=== PATIENT | male | born 2000 ===

== ENCOUNTER 2022-11-29 21:47 | Emergency (ER) | payer BC, SELFPAY ==
--- NOTE | 2022-11-29 | ECG_ITS ---
Test Reason : syncopee Blood Pressure : / mmHG Vent. Rate : 049 BPM Atrial Rate : 049 BPM P-R Int : 128 ms QRS Dur : 100 ms QT Int : 422 ms P-R-T Axes : -17 134 151 degrees QTc Int : 381 ms Suspect limb lead reversal, interpretation assumes no reversal Sinus bradycardia with sinus arrhythmia Lateral infarct , age undetermined Abnormal ECG No previous ECGs available Referred By: Generic ED Physician Electronically Signed By:RAMESH HUGHES
[2022-11-29 21:51] VITALS: BP 100/62; PULSE 70; O2SAT 98
[2022-11-29 22:03] VITALS: BP 108/61; PULSE 66; RESP 18; TEMP 36.8; O2SAT 97; BMI 18.6
[2022-11-29 22:19] LABS: MANUAL DIFF FLAG NO
[2022-11-29 22:35] LABS: Alanine Aminotransferase 10 U/L (0-40); Albumin Level 4.3 g/dL (3.5-5.0); Alkaline Phosphatase 69 U/L (39-117); Anion Gap 12 (12-20); Aspartate Amino Transferase 16 U/L (5-37); Bilirubin Total 0.4 mg/dL (0.0-1.0); Blood Urea Nitrogen 10 mg/dL (9-16); Calcium 9.1 mg/dL (8.4-10.2); Carbon Dioxide 28 mmol/L (22-29); Chloride 107 mmol/L (96-108); Creatinine Clr Calc Pharmacy 115.7; Estimated Glomerular Filt Rate > 60; Glucose Random 132 mg/dL (60-115); Potassium 3.9 mmol/L (3.3-5.1); Sodium 143 mmol/L (135-145); Total Protein 6.4 g/dL (6.5-8.0)
[2022-11-29 22:40] LABS: Basophils Absolute Auto 0.1 X10*3/uL (0.0-0.2); Basophils Percent Auto 1.3 % (0-2); Eosinophils Absolute Auto 0.5 X10*3/uL (0.0-0.4); Eosinophils Percent Auto 7.5 % (0-4); Hemoglobin 14.8 g/dl (14.0-18.0); Imm Gran Abs Auto 0.03 X10*3/uL (0.00-0.03); Imm Gran Pct Auto 0.4 % (0.0-0.4); Lymphocytes Absolute Auto 2.9 X10*3/uL (1.2-4.9); Lymphocytes Percent Auto 40.3 % (20-40); Mean Corpuscular HGB Conc 34.4 g/dl (31.0-36.0); Mean Corpuscular Hemoglobin 31.2 pg (27.0-33.0); Mean Corpuscular Volume 90.5 fL (80.0-98.0); Mean Platelet Volume 10.6 fL (9.4-12.4); Monocytes Absolute Auto 0.4 X10*3/uL (0.1-1.2); Monocytes Percent Auto 6.2 % (2-11); Neutrophils Absolute Auto 3.1 x10*3/uL (2.0-8.3); Neutrophils Percent Auto 44.3 % (45-73); Platelet Count 228 X10*3/uL (160-400); Red Blood Count 4.75 X10*6/uL (4.60-5.80); White Blood Count 7.1 X10*3/uL (4.8-10.8)
--- NOTE | 2022-11-29 23:08 | ED_ITS ---
HPI - Syncope General Chief Complaint: Syncope Stated Complaint: collapse? Time Seen by Provider: 11/29/22 23:02 Source: patient Mode of arrival: EMS Limitations: no limitations History of Present Illness HPI narrative: 22 yo male no PMH was smoking THC didn't eat much today other than a bagel and some water since lunch was standing in line at dispensary felt hot and dizzy knew he was going to pass out. laid himself down and had brief LOC 5 seconds. no preceding CP/SOB feels fine now and wants to go home. no travel or procedures no fam hx of sudden cardiac MD complaint: felt faint and collapsed Onset (ago): minute(s) (prior to arrival ) Duration of episode: 5 -: second(s) Prodromal symptoms: lightheaded Witnessed: Yes - by Bystander Context: standing up Injuries sustained associated with event: none Current symptoms: none and back to baseline Treatments prior to arrival: none Related Data Allergies Allergy/AdvReac Type Severity Reaction Status Date / Time tree nut Allergy Anaphylaxis Verified 11/29/22 22:07 Review of Systems Review of Systems: Constitutional : No Fever, No Chills, No Fatigue ENT/Mouth : No sore throat, No Rhinorrhea Eyes: No Eye Pain, No Swelling, No Redness Cardiovascular : No Chest Pain, No SOB, No Dyspnea on Exertion Respiratory : No Cough, No Sputum Gastrointestinal : No Nausea, No Vomiting, No Diarrhea, No abdominal Pain Genitourinary : No Dysuria, No Urinary Frequency, No Hematuria, Musculoskeletal : No joint pain, No Myalgias, No Joint Swelling Skin : No Skin Lesions, No rash Neuro : No Weakness, No Numbness, No Dizziness, no Headache Psych : No Anxiety/Panic, No Depression All other systems reviewed and are negative [facility] Past Medical History Attestation statement: The following information was validated with the patient. Medical History No pertinent past medical history Social History Social History Alcohol intake: current Alcohol intake frequency: holidays/special occasions only Substance Use Type: Marijuana Physical Exam Vital Signs: Vital Signs: Last Vital Signs Temp 98.2 F 11/29/22 22:03 Pulse 66 11/29/22 22:03 Resp 18 11/29/22 22:03 BP 108/61 08/30/23 22:03 Pulse Ox 99 11/29/22 23:28 O2 Del Method Room Air 11/29/22 23:28 BMI result Body Mass Index 18.6 Appearance: Alert. Oriented X3. No acute distress. Eyes: Pupils equal, round and reactive to light. ENT: Pharynx normal. Neck: Normal inspection. Neck supple. CVS: Normal heart rate and rhythm. Pulses normal. Respiratory: No respiratory distress. Breath sounds normal. Abdomen: Soft and nontender. Skin: Skin warm and dry. Normal skin color. Normal skin turgor. Extremities: No lower extremity edema. No calf ttp Neuro: Oriented X 3. No motor deficit. No sensory deficit. Medical Decision Making Medical Decision Making [facility] Narrative: 22 yo male no sig PMH had dizziness and felt weak without injury laid himself down and had brief LOC he is back to baseline has no CP/SOB no risk factors for ACS/PE. no headache normal neuro exam at this time will need basic labs, EKG and if normal he wants to go home. He is PERC negative, denies GIB symptoms. He is not toxic. NO fam hx of SCD. Differential Diagnosis Differential Diagnoses: The differential diagnosis associated with the presentation includes anemia, dehydration, vasovagal syncope Admission/Observation Consideration of admission/observation: Escalation of care including admission/observation considered at baseline, BP stable, feels fine EKG and labs normal stable for DC Lab Data [facility] Lab Attestation statement: I reviewed the patient's lab results. 11/29/22 22:14 11/29/22 22:14 Labs: Lab Results 11/29/22 11/29/22 Range/Units 22:14 22:14 WBC 7.1 (4.8-10.8) X10*3/uL RBC 4.75 (4.60-5.80) X10*6/uL Hgb 14.8 (14.0-18.0) g/dl Hct 43.0 (42.0-52.0) % MCV 90.5 (80.0-98.0) fL MCH 31.2 (27.0-33.0) pg MCHC 34.4 (31.0-36.0) g/dl RDW 12.0 (11.0-16.0) % Plt Count 228 (160-400) X10*3/uL MPV 10.6 (9.4-12.4) fL Immature Gran % (Auto) 0.4 (0.0-0.4) % Neut % (Auto) 44.3 L (45-73) % Lymph % (Auto) 40.3 H (20-40) % [place] % (Auto) 6.2 (2-11) % Eos % (Auto) 7.5 H (0-4) % Baso % (Auto) 1.3 (0-2) % Lymph # (Auto) 2.9 (1.2-4.9) X10*3/uL [place] # (Auto) 0.4 (0.1-1.2) X10*3/uL Eos # (Auto) 0.5 H (0.0-0.4) X10*3/uL Baso # (Auto) 0.1 (0.0-0.2) X10*3/uL Abs Immat Gran (auto) 0.03 (0.00-0.03) X10*3/uL Absolute Neuts (auto) 3.1 (2.0-8.3) x10*3/uL Absolute Nucleated RBC 0.000 (0.0-0.012) X10*3/uL Nucleated RBC % (auto) 0.0 (0.0-0.2) /100WBC Sodium 143 (135-145) mmol/L Potassium 3.9 (3.3-5.1) mmol/L Chloride 107 (96-108) mmol/L Carbon Dioxide 28 (22-29) mmol/L Anion Gap 12 (12-20) BUN 10 (9-16) mg/dL Creatinine 0.80 (0.5-1.4) mg/dL Estim Creat Clear Calc 115.7 Estimated GFR > 60 Random Glucose 132 H (60-115) mg/dL Calcium 9.1 (8.4-10.2) mg/dL Total Bilirubin 0.4 (0.0-1.0) mg/dL AST 16 (5-37) U/L ALT 10 (0-40) U/L Alkaline Phosphatase 69 (39-117) U/L Total Protein 6.4 L (6.5-8.0) g/dL Albumin 4.3 (3.5-5.0) g/dL Independent Interpretation I performed an independent interpretation of an: EKG Interpretation: initial EKG suspect limb lead reversal will repeat but initial SB 49 inverted T waves V1-V1 and 1 and aVL but question accuracy no STANISLAV, sinus bradycardia, right axis and normal qtc EKG #2 Rate: 49 Rhythm: sinus bradycardia [place]: normal Normal P waves. Normal LESVIA. Normal QRS complex. ST T wave : normal no STANISLAV qTC: normal prior studies: no acute ischemia The study has been interpreted contemporaneously by me. . Independent Historian Clinical information obtained from an independent historian. History obtained from or confirmed by: EMS Discharge Plan Discharge Clinical Impression: Vasovagal syncope Patient Disposition: Home, Self-Care Instructions: Syncope (ED) Additional Instructions: eat a meal when you get home. stay hydrated. return for chest pain, difficulty breathing, dizziness, worsening pain or any other symptoms or concerns.
--- NOTE | 2022-11-29 23:10 | ECG_ITS ---
Test Reason : SYNCOPE Blood Pressure : / mmHG Vent. Rate : 058 BPM Atrial Rate : 058 BPM P-R Int : 140 ms QRS Dur : 094 ms QT Int : 406 ms P-R-T Axes : 024 077 045 degrees QTc Int : 398 ms Sinus bradycardia with sinus arrhythmia Otherwise normal ECG When compared with ECG of 29-NOV-2022 22:24, QRS axis Shifted left Criteria for Lateral infarct are no longer Present ST elevation now present in Lateral leads T wave inversion no longer evident in Anterolateral leads Referred By: Diane Smith Electronically Signed By:RAMESH HUGHES
[2022-11-29 23:28] VITALS: PULSE 59; O2SAT 99
== END 2022-11-30 00:09 | disposition home or self-care (01) ==
LOC: HO.ED 11-30
PROVIDERS: Emergency Provider Emergency Medicine
DX: R55 Syncope and collapse (principal); R00.1 Bradycardia, unspecified; F12.90 Cannabis use, unspecified, uncomplicated
CPT/HCPCS: 36415; 80053; 85025; 93005; 99283; 99285